=== PATIENT | female | born 1990 | race American Indian/Alaskan Native ===

== ENCOUNTER 2021-10-29 13:49 | Emergency (ER) | payer MEDICAID ==
[2021-10-29 14:25] VITALS: BP 136/57
--- NOTE | 2021-10-30 00:30 | Emergency Department Report ---
- General Chief Complaint: Upper Respiratory Infection Stated Complaint: BODY ACHE Time Seen by Provider: 10/29/21 14:25 Source: patient Mode of arrival: Ambulatory Limitations: No Limitations - History of Present Illness Initial Comments: Patient is a 31-year-old -[place]osoth[place] female with no past medical history who presents to the ED with complaint of acute onset persistent nasal and sinus congestion, dry cough for the last 5 days. Patient states that her symptoms of cough are worse at night when she lays down in a supine position to sleep. Patient states that especially in the last 24 hours has not been able to sleep because of worsening cough. Patient states that no one else at home is had similar symptoms. Patient denies dizziness, syncope, chest pain, shortness of breath, nausea and vomiting, change in vision, back pain, headache, fever and chills. MD Complaint: cough, rhinorrhea, nasal congestion, sinus pain -: Sudden, days(s) (5) Severity: moderate Severity scale (0 -10): 5 Quality: dull, aching Consistency: constant Improves With: nothing Worsens With: nothing Associated Symptoms: denies other symptoms, headache, rhinorrhea, nasal congestion, cough. denies: fever, chills, myalgias, sore throat, stiff neck, chest pain, shortness of breath, abdominal pain, nausea, vomiting, diarrhea, dysuria, rash, confusion, right sweats, weight loss, epistaxis, hoarseness, other - Related Data Previous Rx's Medication Instructions Recorded Last Taken Type Azithromycin [Zithromax Z-CIELO] 250 mg PO DAILY #6 tab 10/30/21 Unknown Rx Benzonatate [Tessalon Perles] 100 mg PO Q8HR #30 cap 10/30/21 Unknown Rx Cetirizine HCl [Zyrtec 10mg tab] 10 mg PO DAILY #30 tab 10/30/21 Unknown Rx predniSONE [Deltasone] 40 mg PO QDAY #10 tab 10/30/21 Unknown Rx Allergies Allergy/AdvReac Type Severity Reaction Status Date / Time No Known Allergies Allergy Verified 10/29/21 14:25 ED Review of Systems ROS: Stated complaint: BODY ACHE Other details as noted in HPI Constitutional: chills, malaise. denies: fever Eyes: denies: eye pain, eye discharge, vision change ENT: congestion. denies: ear pain, throat pain Respiratory: cough. denies: shortness of breath, wheezing Cardiovascular: denies: chest pain, palpitations Endocrine: no symptoms reported Gastrointestinal: denies: abdominal pain, nausea, vomiting, diarrhea Genitourinary: denies: urgency, dysuria, discharge Musculoskeletal: denies: back pain, joint swelling, arthralgia Skin: denies: rash, lesions Neurological: denies: headache, weakness, paresthesias Psychiatric: denies: anxiety, depression Hematological/Lymphatic: denies: easy bleeding, easy bruising ED Past Medical Hx - Medications Home Medications: Home Medications Medication Instructions Recorded Confirmed Last Taken Type Azithromycin [Zithromax Z-CIELO] 250 mg PO DAILY #6 tab 10/30/21 Unknown Rx Benzonatate [Tessalon Perles] 100 mg PO Q8HR #30 cap 10/30/21 Unknown Rx Cetirizine HCl [Zyrtec 10mg tab] 10 mg PO DAILY #30 tab 10/30/21 Unknown Rx predniSONE [Deltasone] 40 mg PO QDAY #10 tab 10/30/21 Unknown Rx ED Physical Exam - General Limitations: No Limitations General appearance: alert, in no apparent distress - Head Head exam: Present: atraumatic, normocephalic, normal inspection - Eye Eye exam: Present: normal appearance, PERRL, EOMI Pupils: Present: normal accommodation - ENT ENT exam: Present: normal orophraynx, mucous membranes moist, TM's normal bilaterally, normal external ear exam, other (Grossly congested nasal passages; ) - Neck Neck exam: Present: normal inspection, full ROM. Absent: tenderness - Respiratory Respiratory exam: Present: normal lung sounds bilaterally. Absent: respiratory distress, wheezes, rales, rhonchi, chest wall tenderness, accessory muscle use, decreased breath sounds, prolonged expiratory - Cardiovascular Cardiovascular Exam: Present: regular rate, normal rhythm, normal heart sounds. Absent: systolic murmur, diastolic murmur, rubs, gallop - GI/Abdominal GI/Abdominal exam: Present: soft, normal bowel sounds. Absent: tenderness, guarding, rebound, hyperactive bowel sounds, hypoactive bowel sounds, mass - Extremities Exam Extremities exam: Present: normal inspection, full ROM, normal capillary refill. Absent: tenderness - Back Exam Back exam: Present: normal inspection, full ROM. Absent: tenderness, CVA tenderness (R), CVA tenderness (L), muscle spasm, paraspinal tenderness, vertebral tenderness - Neurological Exam Neurological exam: Present: alert, oriented X3, CN II-XII intact, normal gait, reflexes normal - Psychiatric Psychiatric exam: Present: normal affect, normal mood - Skin Skin exam: Present: warm, dry, intact, normal color. Absent: rash ED Course Vital Signs 10/29/21 14:22 Temperature 98.9 F Pulse Rate 81 Respiratory 15 Rate Blood Pressure 136/57 [Right] O2 Sat by Pulse 97 Oximetry ED Medical Decision Making - Radiology Data Radiology results: report reviewed, image reviewed Chest x-ray shows no acute cardiopulmonary abnormalities or pneumonitis. - Medical Decision Making This is a 31-year-old -[place]os[place] female with no past medical history who presents to the ED with complaint of acute onset persistent nasal and sinus congestion, dry cough for the last 5 days. Patient states that her symptoms of cough are worse at night when she lays down in a supine position to sleep. Patient states that especially in the last 24 hours has not been able to sleep because of worsening cough. Patient states that no one else at home is had similar symptoms. In the ED, patient is alert and oriented x3 and is not in any distress. Patient is hemodynamically stable. Chest x-ray showed no acute cardiopulmonary abnormalities or pneumonitis. Patient was discharged home on medications and advised to follow-up with her primary care physician in 7 to 10 days for reevaluation or return to the ED immediately if symptoms get worse. - Differential Diagnosis URI; sinusitis; bronchitis; pneumonitis; COVID-19; rhinitis Critical care attestation.: If time is entered above; I have spent that time in minutes in the direct care of this critically ill patient, excluding procedure time. ED Disposition Clinical Impression: Acute upper respiratory infection Acute bronchitis Qualifiers: Bronchitis organism: unspecified organism Qualified Code(s): J20.9 - Acute bronchitis, unspecified Disposition: HOME / SELF CARE / HOMELESS Is pt being admited?: No Does the pt Need Aspirin: No Condition: Stable Instructions: Acute Bronchitis (ED), Upper Respiratory Infection, Adult, [id number], Acute Bronchitis, Adult, [id number] Additional Instructions: Chest x-ray showed no acute cardiopulmonary abnormalities or pneumonitis. Your symptoms are likely due to a acute upper respiratory infection and bronchitis. Therefore take medication with food, drink plenty of fluids and follow-up with your primary care physician in 7 to 10 days for reevaluation. Return to the ED immediately if symptoms get worse. Prescriptions: predniSONE [Deltasone] 40 mg PO QDAY #10 tab Benzonatate [Tessalon Perles] 100 mg PO Q8HR #30 cap Azithromycin [Zithromax Z-CIELO] 250 mg PO DAILY #6 tab Cetirizine HCl [Zyrtec 10mg tab] 10 mg PO DAILY #30 tab Referrals: LUANNE CLEMENTS MD [Primary Care Provider] - 7-10 days Forms: Work/School Release Form(ED) Time of Disposition: 00:28 Print Language: KYRGYZ
--- NOTE | 2021-10-31 08:01 | XRay Report ---
CHEST 2 VIEWS INDICATION / CLINICAL INFORMATION: fever, cough, sob. COMPARISON: None available. FINDINGS: SUPPORT DEVICES: None. HEART / MEDIASTINUM: No significant abnormality. LUNGS / PLEURA: No significant pulmonary or pleural abnormality. No pneumothorax. ADDITIONAL FINDINGS: No significant additional findings. IMPRESSION: 1. No acute findings. Signer Name: Felipe Macias MD Signed: 10/29/2021 2:40 PM Workstation Name: [email or web address]
== END 2021-10-30 01:20 | disposition home or self-care (01) ==
LOC: ED 13:49
DX: J06.9 Acute upper respiratory infection, unspecified (principal); J20.9 Acute bronchitis, unspecified
CPT/HCPCS: 71046; 99283